=== PATIENT | female | born 1975 | race Caucasian/White ===

== ENCOUNTER → 2024-08-08 10:03 | Outpatient (REF) | payer OTHER, SELFPAY | LOC: HWRAD 10:03 | PROVIDERS: ATTENDING PHYSICIAN Student in an Organized Health Care Education/Training Program | DX: E04.9 Nontoxic goiter, unspecified (principal); M54.41 Lumbago with sciatica, right side; M25.551 Pain in right hip; M25.552 Pain in left hip | CPT/HCPCS: 72110; 73522; 76536 ==

== ENCOUNTER → 2024-09-07 11:29 | Outpatient (REF) | payer OTHER, SELFPAY | LOC: HWRAD 11:29 | PROVIDERS: ATTENDING PHYSICIAN Family Medicine | DX: R31.9 Hematuria, unspecified (principal); N20.0 Calculus of kidney | CPT/HCPCS: 74018; 74176 ==

== ENCOUNTER 2024-09-09 07:07 | Emergency (ER) | payer OTHER, SELFPAY ==
[2024-09-09 07:08] VITALS: BP 143/84
--- NOTE | 2024-09-09 07:25 | ED.GENMED ---
History of Present Illness
General
Chief Complaint: Flank Pain
Source: patient
Exam Limitations: none
Time Seen by Provider: 09/09/24 07:14
History of Present Illness
History of Present Illness:
49-year-old female notes increased right flank pain. She developed right flank pain several days ago seen by the family doctor had an outpatient CT scan done of her abdomen which demonstrated a 4 mm stone in the distal right ureter. CAT scan was
done 2 days ago. She had improved symptoms yesterday however early this morning she woke up increased pain and vomiting. She denies fevers. She is not currently on any antibiotics. She takes control only and no other medications. No prior
abdominal surgical history. No other complaints
Phy Exam
Physical Exam
Physical Exam:
General: Uncomfortable appearing female no acute respiratory distress
HEENT: Normocephalic atraumatic
Heart: Regular rate and rhythm no murmurs
Lungs: Clear no wheeze
Abdomen is soft tender to the right flank and right lower abdomen. No guarding rebound normal bowel sounds
Extremities: No cyanosis
Course
Orders/Labs/Results
Orders:
Orders
09/09/24 07:22
0.9% Sodium Chloride 1000 ml [Nss] 1,000 ml IV BOLUS
Ketorolac [Toradol] 15 mg IV NOW STA
Ondansetron Injectable [Zofran] 4 mg IV NOW STA
09/09/24 07:30
CR Abdomen - 1 View Urgent
Comment:
Reason For Exam: right distal ureteral stone
09/09/24 07:46
Complete Blood Count/With Diff Urgent
Urinalysis Reflex To Culture Urgent
Date Specimen was Collected: 09/09/24
Time Specimen was Collected: 07:25
Urine Microscopic Reflex Cult Urgent
09/09/24 08:02
HYDROmorphone [Dilaudid] 0.5 mg IV NOW STA
09/09/24 08:18
Comprehensive Metabolic Panel Urgent
09/09/24 08:56
Tamsulosin [Flomax] 0.4 mg PO NOW STA
Abnormal Lab Results
09/09/24 09/09/24
07:46 08:18
WBC 17.8 H 10^3/uL
(4.8-10.8)
Abs Immat Gran (auto) 0.1 H 10^3/uL
(0-0.05)
Absolute Neuts (auto) 16.7 H 10^3/uL
(1.4-6.5)
Absolute Lymphs (auto) 0.6 L 10^3/uL
(1.2-3.4)
Neutrophils % 93.8 H %
(42.2-75.2)
Lymphocytes % 3.4 L %
(20.5-51.1)
Carbon Dioxide 21 L mmol/L
(22-30)
BUN 18 H mg/dl
(7-17)
Glucose 128 H mg/dl
(70-99)
Alkaline Phosphatase 137 H U/L
(38-126)
Urine Ketones 3+ A
(Negative)
Ur Occult Blood Reflex 3+ A
(Negative)
Urine RBC 30-40 A /HPF
(0-2)
Urine Bacteria (Reflex) Few A
(Negative)
09/09/24 07:46
09/09/24 08:18
Vital Signs
Initial and Last Documented VS:
Initial Vital Signs
Temp Pulse Resp BP Pulse Ox
98.5 F 102 18 143/84 100
09/09/24 07:08 09/09/24 07:08 09/09/24 07:08 09/09/24 07:08 09/09/24 07:08
Last Documented Vital Signs
Temp Pulse Resp BP Pulse Ox
98.5 F 102 18 143/84 100
09/09/24 07:08 09/09/24 07:08 09/09/24 07:08 09/09/24 07:08 09/09/24 07:08
MDM/Problems Addressed
Differential Diagnosis Includes:
Patient with known active ureteral stone measuring 4 mm. 2 days ago was in the distal right ureter. Will recheck urine for signs of infection. Will check labs for potential kidney injury. Treat for symptoms with fluids Zofran and Toradol.
*Critical Care Note
Total Time (30-74mins, 75-104mins- exclusive of procedures): Not Applicable
Update Note
Update Note:
Urinalysis with hematuria without pyuria. Patient feeling better after Toradol Dilaudid fluids and Flomax. I reviewed the CT scan from 2 days ago. The stone is 1 to 2 cm from the bladder. Discussed with urology. No urgent need for intervention
from urology per their recommendations. They will see her in the office Tuesday if she still having symptoms. Will discharge patient with analgesia and antiemetics.
ED Attending Note
-
Portions of this chart may have been created with voice recognition software.� Occasional wrong word or��sound alike� substitutions may have occurred due to the inherent limitations of voice recognition software.
Discharge Plan
Departure
Patient Disposition: Home (Routine Discharge)
Date of Disposition: 09/09/24
Time of Disposition: 10:00
Patient with high blood pressure during this ER visit?: No
Discharge Problem:
Kidney stone
Instructions: Renal Colic (DC), How to Strain Your Urine
Prescriptions:
New
tamsulosin [Flomax] 0.4 mg capsule
0.4 mg PO DAILY Qty: 14 0RF
hydrocodone-acetaminophen 5-325 mg tablet
1 tab PO Q8H PRN (Reason: Pain) Qty: 10 0RF
ondansetron 4 mg tablet,disintegrating
4 mg PO Q8H PRN (Reason: nausea and vomiting) Qty: 10 0RF
No Action
folic acid 1 MG tablet
1 mg PO DAILY
Patient Comments:
when remember
Tylenol
650 mg PO Q4H PRN (Reason: PAIN)
Referrals:
Marianna Garcia PA-C [Family Provider] -
Roni Anders MD [Active] -
Activity Restrictions/Additional Instructions:
Continue to drink plenty of fluids. Use pain medicine as needed for severe pain. Use nausea medicine if needed. Use Flomax as directed. Strain the urine. Return here for worsening symptoms including fever persistent vomiting or increased pain.
Follow-up with urology otherwise this coming Tuesday
Interventions
Interventions:
*Risk Screen - Suicide Last Done: 09/09/24 07:08
*General Assessment Last Done: 09/09/24 07:08
*Neglect/Abuse Screening Last Done: 09/09/24 07:08
ED- Fall Risk Assessment Last Done: 09/09/24 07:49
*ED COVID-19 Vaccine History Last Done: 09/09/24 07:49
BW-Wdvzke-Ikjgritdvv Assessment Last Done: 09/09/24 07:49
ED-Female Genitourinary Assessment Last Done: 09/09/24 07:49
Discharge Date and Time
Print Language: HUNGARIAN
[2024-09-09 07:49] VITALS: BMI 29.1
[2024-09-09] MEDS: TORADOL 15 MG IV (07:53)
[2024-09-09] MEDS: NSS 1000 IV (07:53)
[2024-09-09 07:54] LABS: % Basophils 0.3 % (0-2); % Eosinophils 0.1 % (0-6); % Immature Granulocytes 0.5 % (0-0.5); % Lymphocytes 3.4 % (20.5-51.1); % Monocytes 1.9 % (1.7-9.3); % Neutrophils 93.8 % (42.2-75.2); Absolute Basophils 0.1 10^3/uL (0-0.2); Absolute Immature Granulocytes 0.1 10^3/uL (0-0.05); Absolute Lymphocytes 0.6 10^3/uL (1.2-3.4); Absolute Monocytes 0.3 10^3/uL (0.1-0.6); Absolute Neutrophils 16.7 10^3/uL (1.4-6.5); Hematocrit 38.3 % (37.0-47.0); Mean Corp Hgb Conc. 33.9 g/dL (33.0-37.0); Mean Corpuscular Hgb 30.2 pg (27.0-31.0); Mean Corpuscular Volume 89.1 fL (81.0-99.0); Mean Platelet Volume 9.3 fL (7.4-10.4); Nucleated Red Blood Cells % 0 %; Platelet Count 307 10^3/uL (130-400); White Blood Cell Count 17.8 10^3/uL (4.8-10.8)
[2024-09-09] MEDS: ZOFRAN 4 MG IV (07:54)
[2024-09-09 08:02] LABS: Urine Albumin Trace (Neg - Trace); Urine Bilirubin Negative (Negative); Urine Character Clear (Clear); Urine Color Yellow; Urine Glucose Negative (Negative); Urine Ketone 3+ (Negative); Urine Leukocyte Negative (Negative); Urine Nitrite Negative (Negative); Urine Occult Blood 3+ (Negative); Urine Urobilinogen Negative (Neg - 1+)
[2024-09-09] MEDS: DILAUDID 0.5 MG IV (08:11)
[2024-09-09 08:16] LABS: Urine Urothelial Cell 0-2 /LPF (FEW)
[2024-09-09 08:19] LABS: Urine Bacteria Few (Negative); Urine Red Blood Cell 30-40 /HPF (0-2)
[2024-09-09 08:59] LABS: ALT (SGPT) 25 U/L (0-35); AST (SGOT) 28 U/L (14-36); Albumin 3.9 g/dl (3.5-5.0); Alkaline Phosphatase 137 U/L (38-126); Blood Urea Nitrogen 18 mg/dl (7-17); Carbon Dioxide 21 mmol/L (22-30); Chloride 107 mmol/L (98-107); Estimated Creatinine Clearance 64 ml/min; Glucose 128 mg/dl (70-99); Potassium 4.2 mmol/L (3.5-5.1); Sodium 142 mmol/L (135-145); Total Bilirubin 1.2 mg/dl (0.2-1.3); Total Protein 6.8 g/dl (6.3-8.2); eGFR > 60.00
[2024-09-09] MEDS: FLOMAX 0.4 MG PO (09:29)
[2024-09-09 10:03] VITALS: BP 130/82
== END 2024-09-09 10:44 | disposition home or self-care (01) ==
LOC: EMR 07:07
PROVIDERS: Physician Assistant; EMERGENCY PHYSICIAN Emergency Medicine; FAMILY PHYSICIAN Student in an Organized Health Care Education/Training Program
DX: N20.2 Calculus of kidney with calculus of ureter (principal); Z79.3 Long term (current) use of hormonal contraceptives
CPT/HCPCS: 96374; 96375; 96361; 99284; 74018; 80053; 81003; 81015; 85025

== ENCOUNTER → 2024-09-12 12:48 | Outpatient (REF) | payer OTHER, SELFPAY ==
[2024-09-12 13:02] VITALS: BP 115/79; BP_SYST 75
== END ==
LOC: RADI 12:48
PROVIDERS: ATTENDING PHYSICIAN Otolaryngology
DX: E04.1 Nontoxic single thyroid nodule (principal)
CPT/HCPCS: 88173; 10005

== ENCOUNTER → 2025-09-05 09:24 | Outpatient (REF) | payer OTHER, SELFPAY | LOC: HWRAD 09:24 | PROVIDERS: ATTENDING PHYSICIAN Otolaryngology; FAMILY PHYSICIAN Physician Assistant Medical | DX: E04.1 Nontoxic single thyroid nodule (principal) | CPT/HCPCS: 76536 ==